=== PATIENT | female | born 1955 | race Caucasian/White ===

== ENCOUNTER → 2019-05-02 | Outpatient (CLI) | payer BC ==
--- NOTE | 2019-05-02 16:11 | CT ---
EXAMINATION TYPE: CT orbits wo/w con DATE OF EXAM: 05/02/2019 COMPARISON: MRI of the brain dated 07/30/2012 HISTORY: Visual disturbances, LT eye. 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 CONTRAST: Performed with IV Contrast, patient injected with 100 mL of Isovue 300. FINDINGS: Precontrast images demonstrate no evidence of hemorrhage or suspicious calcifications. The globes are symmetric and lenses are in place. Extraocular muscles and optic nerves are symmetric. No engorgemen t of the superior ophthalmic veins. No intraconal or extraconal mass is seen. No preseptal or post se ptal inflammatory fat stranding. No abnormal enhancement of the orbits. Overall no abnormal postcontrast enhancement and the visualized portions of the calvarium. Incidental ly noted right frontal osteoma. Incidentally noted left-sided mana bullosa. Visualized portions of the mastoid air cells and paranasal sinuses are well aerated. Ostiomeatal complexes appear patent. Ri ght-sided nasal turbinate mucosal hypertrophy is incidentally seen. IMPRESSION: 1. UNREMARKABLE CT THE ORBITS. NO INTRACONAL OR EXTRACONAL MASS. NO ABNORMAL ENHANCEMENT. EXTRAOCULAR MUSCLES ARE SYMMETRIC. GLOBES ARE INTACT AND LENSES ARE IN PLACE. 2. MILD BURDEN NONSPECIFIC WHITE MATTER CHANGE WAS SEEN ON THE PRIOR MRI OF 2012. IF THERE IS CONCERN FOR MULTIPLE SCLEROSIS GIVEN THE OPTIC SYMPTOMS REPEAT MRI WITH CONTRAST WOULD BE RECOMMENDED.
== END ==
LOC: RADCTMAIN 08:54
PROVIDERS: ATTEND Ophthalmology
DX: R90.89 Other abnormal findings on diagnostic imaging of central nervous system (principal)
CPT/HCPCS: 70482; Q9967

== ENCOUNTER 2024-01-26 02:47 | Observation (INO) | payer MEDICARE ==
[~2024-01-26 02:47] MED LIST: ASPIRIN 81 MG ONE
[2024-01-26] MEDS ORDERED: METOPROLOL SUCCINATE (ER) 25 MG TAB.ER.24H PO ONE (13:51)
[2024-01-26] MEDS ORDERED: ATORVASTATIN 40 MG TAB ONE (13:52)
[2024-01-26] MEDS ORDERED: ASPIRIN 81 MG ONE (13:52)
[2024-01-26] MEDS ORDERED: lisinopriL 20 MG TAB ONE (13:52)
[2024-01-26] MEDS ORDERED: SPIRONOLACTONE 25 MG TAB ONE (13:52)
[2024-01-27] MEDS ORDERED: lisinopriL 20 MG TAB ONE (08:17)
[2024-01-27] MEDS ORDERED: ASPIRIN 81 MG ONE (08:18)
[2024-01-27] MEDS ORDERED: SPIRONOLACTONE 25 MG TAB ONE (08:18)
[2024-01-27] MEDS ORDERED: ATORVASTATIN 40 MG TAB ONE (08:18)
[2024-01-27] MEDS ORDERED: METOPROLOL SUCCINATE (ER) 25 MG TAB.ER.24H PO ONE (14:52)
--- NOTE | 2024-03-06 11:28 | XR ---
JASWANT KLINE : 1955 EXAM: 2 view chest radiograph DATE: 01/25/2024 21:20 INDICATION: Reason for study: SOB, chest tightness COMPARISON: None, please note PACS downtime occurred during the radiologist interpretation of these i mages with limited priors/reports.. TECHNIQUE: 2 views of the chest. Frontal and lateral views of the chest. TECHNIQUE: Frontal and lateral views of the chest. FINDINGS: Lungs/Pleura: There is no evidence of pleural effusion, focal consolidation, or pneumothorax. Pulmonary vascularity: Unremarkable. Heart/mediastinum: Cardiomediastinal silhouette is unremarkable. Musculoskeletal: No acute osseous pathology. Other findings: No significant findings. IMPRESSION: No acute cardiopulmonary disease/process. [facility], , 03/02/2024 1:01 PM
--- NOTE | 2024-03-07 18:00 | CT ---
EXAM: CT Angiography Chest With Intravenous Contrast CLINICAL HISTORY: chest pain R/O PE TECHNIQUE: Axial computed tomographic angiography images of the chest with intravenous contrast. CTDI is 25.8 mGy and DLP is 534 mGy-cm. This CT exam was performed using one or more of the following dose reduction techniques: automated exposure control, adjustment of the mA and/or kV according to patient size, and/or use of iterative reconstruction technique. MIP reconstructed images were created and reviewed. COMPARISON: No relevant prior studies available. FINDINGS: LUNGS:No focal consolidation, pleural effusion, or pneumothorax. Atelectasis at the lung bases. HEART:Cardiomegaly. VASCULATURE:No acute pulmonary embolism. Atherosclerotic changes of the aorta. THYROID: Within normal limits. MEDIASTINUM & LYMPH NODES: There are no pathologically enlarged mediastinal, hilar, or axillary lymph nodes. SUPERIOR ABDOMEN:Hepatic steatosis. MUSCULOSKELETAL:Degenerative changes. IMPRESSION : No acute pulmonary embolism. Radiologist: Timi Ordaz MD Electronically Signed: 01/26/24 02:35 Study ready at 00:54 and initial results transmitted at 02:35 Results also transmitted to Film Room, Film Room @ [phone] (Fax) MTDD
== END 2024-01-27 16:39 | disposition home or self-care (01) ==
LOC: DISRECOVER 02:47 → INTOOBSV 02:47 → UNDODISIN 01-27 16:53
PROVIDERS: ADMIT Internal Medicine; ATTEND Internal Medicine
DX: R07.89 Other chest pain (principal); I10 Essential (primary) hypertension; I42.9 Cardiomyopathy, unspecified; Z79.899 Other long term (current) drug therapy; Z91.040 Latex allergy status
CPT/HCPCS: 71046; 71275; 80061; 93005; 99285

== ENCOUNTER → 2024-02-12 | Outpatient (CLI) | payer MEDICARE ==
[2024-02-12 12:13] LABS: African American GFR (CKD) 65 (>60 ml/min/1.73 sqM); Blood Urea Nitrogen 35 mg/dL (7-17); Non-African American GFR(CKD) 56 (>60 ml/min/1.73 sqM)
--- NOTE | 2024-02-12 13:06 | CT ---
EXAMINATION TYPE: CT angio chest DATE OF EXAM: 02/12/2024 12:53 PM COMPARISON: None HISTORY: chest heaviness CT DLP: 990 mGycm Automated exposure control for dose reduction was used. CONTRAST: CTA scan of the thorax is performed without and with IV Contrast, patient injected with 100 mL of Iso alex 370, pulmonary embolism protocol. . FINDINGS: LUNGS: Subsegmental consolidation most typical of atelectasis. Underlying emphysematous changes. Biap ical pleural thickening. No pulmonary edema. MEDIASTINUM: There is satisfactory enhancement of the pulmonary artery and its central branches, ther e is no CT evidence for pulmonary embolism. Segmental and distal branches limited due to artifact. There is a borderline mediastinal and hilar lymphadenopathy which is nonspecific. Ascending aorta delmis sures a maximal dimension of 4 cm compatible with borderline aneurysm. OTHER: Calcifications in the left breast are incidentally noted. Small hiatal hernia. Liver reduced attenuation correlate for underlying hepatic steatosis. Nonspecific mild thickening of the adrenal gl ands. IMPRESSION: 1 borderline ascending aortic aneurysm measuring 4 cm. 2. No central pulmonary embolism. Distal branches are limited. 3. Nonspecific mediastinal and hilar borderline adenopathy. 4. Correlate for COPD.
== END | disposition home or self-care (01) ==
LOC: RADCTMAIN 11:09
PROVIDERS: ATTEND Family Medicine
DX: G45.8 Other transient cerebral ischemic attacks and related syndromes (principal); I71.21 Aneurysm of the ascending aorta, without rupture; R59.0 Localized enlarged lymph nodes; J44.9 Chronic obstructive pulmonary disease, unspecified; J98.11 Atelectasis; K76.0 Fatty (change of) liver, not elsewhere classified; K44.9 Diaphragmatic hernia without obstruction or gangrene
CPT/HCPCS: 36415; 71275; 82565; 84520

== ENCOUNTER → 2024-04-23 | Outpatient (CLI) | payer MEDICARE ==
--- NOTE | 2024-04-23 10:35 | USB ---
Reason for Exam: Clinical finding. Risk Values: Oksana 5 year model risk: 1.1%. NCI Lifetime model risk: 4.0%. Technique: Method: Whole Breast Handheld. Prior Study Comparison: 12/10/1996 Bilateral Special View Mammogram, [facility]. Findings: The whole breast of both breasts, the axilla of both breasts and the retroareolar of both breasts were scanned. Left breast: Small axillary lymph node is noted on the left. There are some dilated ducts in the left breast. At the 12:00 position 4 cm from the nipple there is a 0.6 x 1.1 x 0.6 cm mixed echogenicity area with some posterior shadowing. This area is suspicious and biopsy is recommended. At the 1:00 position 8 cm from the nipple there is a posterior hypoechoic area with slightly ill-defined margins measuring 0.4 x 0.4 x 0.5 cm. At the 1:00 position 10 cm from the nipple there is a 1.0 x 1.3 x 0.7 cm described hypoechoic area mass posterior wall enhancement. Biopsy is recommended. Right breast: There is a subtle oval hypoechoic area measuring 0.7 x 0.4 x 0.4 cm right breast 5:00 position 2 cm of the nipple. Biopsy recommended. There are dilated ducts within the right breast. Overall Assessment: Benign, BI-RAD 2 Management: Ultrasound Core Biopsy of both breasts. A clinical breast exam by your physician is recommended on an annual basis and results should be correlated with mammographic findings. This exam should not preclude additional follow-up of suspicious palpable abnormalities. Results were given to the patient verbally at the time of exam. [facility], , 04/23/2024 10:12 AM. Electronically signed and approved by: Imtiaz Grossman D.O. Radiologis
== END | disposition home or self-care (01) ==
LOC: RADUSWWP 08:51
PROVIDERS: ATTEND Pediatrics
DX: N63.20 Unspecified lump in the left breast, unspecified quadrant (principal)